=== PATIENT | male | born 1985 | race Caucasian/White ===

== ENCOUNTER 2019-02-25 07:30 | Inpatient (IN) | payer OTHER ==
[~2019-02-25 07:30] MED LIST: Buffered Lidocaine 1% SYRIN* 1 ML/SYRINGE INTRADERM ONE; Lactated Ringers 1000 ML Bag* 1,000 ML IV SCH
--- OUTSIDE RECORDS SUMMARY | 2019-02-25 09:28 | XMS REPORT | Continuity of Care Document ---
:1985 External Reference #:[id number] Author Name Laura Kwon MD (transmitted by agent of provider Benita Garvin) Address [address] [place] [address] Care Team Providers Name Role Phone Vishnu Alfonso PA - Physician Care Team Information Clinical Informatics Director [phone] Promotions Coordinator Problems Description No Information Available Social History Type Date Description Comments Sex Unknown ETOH Use Never used alcohol ETOH Use Occasionally consumes alcohol Recreational Drug [place] Tobacco Use Start: Unknown Patient has never smoked Smoking Status Reviewed: 02/09/19 Patient has never smoked Exercise Type/Frequency Exercises rarely Allergies, Adverse Reactions, Alerts Description No Known Drug Allergies Medications Active Medications SIG Qnty Indications Ordering Date Provider Duloxetine HCL 2 tabs by mouth Unknown 11/23/[address] every day Part Cyclobenzaprine HCL take 1 tab by Unknown 11/23/2018 10mg mouth 2 times a Tablets day as needed Gas-X Extra Strength as needed Unknown 11/23/2018 125mg Capsules Ranitidine 150 Maximum 1-2 tablets at Unknown 11/23/2018 Strength hour of sleep as 150mg Tablets directed Unisom PM Pain 2 tabs by mouth Unknown 11/23/2018 50-325mg at bedtime Tablets Melatonin ER 1-2 tab at Unknown 11/23/2018 5mg Tablets ER bedtime for sleep Atenolol-Chlorthalidone 1 tab by mouth Vishnu Alfonso PA daily 100-25mg Tablets Allopurinol 2 tabs by mouth Vishnu Alfonso PA 300mg Tablets daily Hydrocodone-Acetaminophe 1 or 2 tabs by Unknown n mouth every 6-8 5-325mg Tablets hours as needed for pain Cymbalta 200 mg daily Unknown Allopurinol 2 tab by mouth Unknown 100mg Tablets every day Bupropion Hydrochloride 1 by mouth every Unknown ER (XL) day 300mg Tablets ER 24HR History Medications Indomethacin 1 capsule every 8 Unknown 11/23/2018 - 01/23/2019 50mg Capsules hours as needed Immunizations Description No Information Available Vital Signs Date Vital Result Comment 02/09/2019 1:47pm Height 72 inches 6'0" Weight 431.00 lb Heart Rate 72 /min BP Systolic Sitting 122 mmHg L arm BP Diastolic Sitting 80 mmHg L arm O2 % BldC Oximetry 100 % BMI (Body Mass Index) 58.4 kg/m2 12/08/2018 1:46pm Height 72 inches 6'0" Weight 470.00 lb Heart Rate 84 /min BP Systolic Sitting 131 mmHg L lower labs BP Diastolic Sitting 81 mmHg L lower labs O2 % BldC Oximetry 98 % BMI (Body Mass Index) 63.7 kg/m2 Results Test Acquired Date Facility Test Result H/L Range Note Neph Routine 02/05/2019 [facility] Total Protein 58 mg/dL [address] [place] [address] [phone] Creatinine Random Urine 105.62 mg/dL CBC Auto 02/05/2019 [facility] White Blood 11.4 10^3/uL High 3.5-10.[address] [place] [address] [phone] Red Blood Count 5.30 10^6/uL Normal 4.18-5.48 Hemoglobin 15.6 g/dL Normal 14.0-18.0 Hematocrit 48 % Normal 42-52 Mean Corpuscular Volume 90 fL Normal 80-94 Mean Corpuscular Hemoglobin 30 pg Normal 27-31 Mean Corpuscular HGB Conc 33 g/dL Normal 31-36 Red Cell Distribution Width 15 % Normal 10-15 Platelet Count 273 10^3/uL Normal 150-450 Mean Platelet Volume 9.0 fL Normal 7.4-10.4 Abs Neutrophils 8.5 10^3/uL High 1.5-7.7 Abs Lymphocytes 2.0 10^3/uL Normal 1.0-4.8 Abs Monocytes 0.6 10^3/uL Normal 0-0.8 Abs Eosinophils 0.2 10^3/uL Normal 0-0.6 Abs Basophils 0.1 10^3/uL Normal 0-0.2 Abs Nucleated RBC 0.0 10^3/uL Granulocyte % 74.6 % Lymphocyte % 17.9 % Monocyte % 5.2 % Eosinophil % 1.7 % Basophil % 0.6 % Nucleated Red Blood Cells % 0.1 Urinalysis Profile 02/05/2019 [facility] Urine Color Yellow [address] [place] [address] [phone] Urine Appearance Clear Urine Specific [place] 1.013 Normal 1.010-1.030 Urine pH 6.0 Normal 5-9 Urine Urobilinogen Negative Negative Urine Ketones Negative Negative Urine Protein 1+(30 mg/dL) Abnormal Negative Urine Leukocytes Negative Negative Urine Blood Negative Negative Urine Nitrite Negative Negative Urine Bilirubin Negative Negative Urine Glucose Negative Negative Urine White Blood Cell Absent Absent Urine Red Blood Cell Trace(0-2/hpf) Absent Urine Bacteria Absent Absent Basic Metabolic 02/05/2019 [facility] Sodium 136 mmol/L Normal 135-145 Panel [address] [place] [address] [phone] Potassium 4.0 mmol/L Normal 3.5-5.0 Chloride 101 mmol/L Normal 101-111 Co2 Carbon Dioxide 25 mmol/L Normal 22-32 Anion Gap 10 mmol/L Normal 2-11 Glucose 96 mg/dL Normal 70-100 Blood Urea Nitrogen 31 mg/dL High 6-24 Creatinine 2.29 mg/dL High 0.67-1.17 BUN/Creatinine Ratio 13.5 Normal 8-20 Calcium 10.4 mg/dL High 8.6-10.3 Egfr Non- 33.5 >60 Egfr 40.5 >60 1 1 Because ethnic data is not always readily available, this report includes an eGFR for both -Americans and non- Americans. The National Kidney Disease Education Program (NKDEP) does not endorse the use of the MDRD equation for patients that are not between the ages of 18 and 70, are , have extremes of body size, muscle mass, or nutritional status, or are non- or non-. According to the National Kidney Foundation, irrespective of diagnosis, the stage of the disease is based on the level of kidney function: Stage Description GFR(mL/min/1.73 m(2)) 1 Kidney damage with normal or decreased GFR 90 2 Kidney damage with mild decrease in GFR 60-89 3 Moderate decrease in GFR 30-59 4 Severe decrease in GFR 15-29 5 Kidney failure <15 (or dialysis) Procedures Date Code Description Status 10/11/2018 84298 Sleep Study Unattended,HRT Rate,Oxygen Sat,Resp Completed Effort/Airflow Medical Devices Description No Information Available Encounters Type Date Location Provider Dx Diagnosis Office Visit 12/08/2018 [facility] Nephrology Laura Kennedy I12.9 Hypertensive chronic 2:00p MD Cher kidney disease w stg 1-4/unsp chr kdny E66.01 Morbid (severe) obesity due to excess calories N18.3 Chronic kidney disease, stage 3 (moderate) G47.33 Obstructive sleep apnea (adult) (pediatric) R73.03 Prediabetes Z68.44 Body mass index (BMI) 60.0-69.9, adult I10 Essential (primary) hypertension Office Visit 10/24/2018 [facility] G47.33 Obstructive sleep 11:00a [facility] Sun apnea (adult) [facility] (pediatric) R53.83 Other fatigue E66.01 Morbid (severe) obesity due to excess calories Z68.44 Body mass index (BMI) 60.0-69.9, adult Office Visit 09/22/2018 10:00a [facility] Jovanna Sellers, R06.83 [facility] G47.33 Obstructive sleep apnea (adult) (pediatric) R53.83 Other fatigue Assessments Date Code Description Provider 02/09/2019 I12.9 Hypertensive chronic kidney disease with Laura Kwon MD stage 1 through stage 4 chronic kidney disease, or unspecified chronic kidney disease 02/09/2019 E66.01 Morbid (severe) obesity due to excess Laura Kwon MD calories 02/09/2019 N18.3 Chronic kidney disease, stage 3 (moderate) Laura Kwon MD 02/09/2019 G47.33 Obstructive sleep apnea (adult) (pediatric) Laura Kwon MD 02/09/2019 R73.03 Prediabetes Laura Kwon MD 02/09/2019 Z68.44 Body mass index (BMI) 60.0-69.9, adult Laura Kwon MD 02/09/2019 I10 Essential (primary) hypertension Laura Kwon MD 12/08/2018 I12.9 Hypertensive chronic kidney disease with Laura Kwon MD stage 1 through stage 4 chronic kidney disease, or unspecified chronic kidney disease 12/08/2018 E66.01 Morbid (severe) obesity due to excess Laura Kwon MD calories 12/08/2018 N18.3 Chronic kidney disease, stage 3 (moderate) Laura Kwon MD 12/08/2018 G47.33 Obstructive sleep apnea (adult) (pediatric) Lauar Kwon MD 12/08/2018 R73.03 Prediabetes Laura Kwon MD 12/08/2018 Z68.44 Body mass index (BMI) 60.0-69.9, adult Laura Kwon MD 12/08/2018 I10 Essential (primary) hypertension Laura Kwon MD 10/24/2018 G47.33 Obstructive sleep apnea (adult) (pediatric) Viola Sun NP 10/24/2018 R53.83 Other fatigue Viola Sun NP 10/24/2018 E66.01 Morbid (severe) obesity due to excess Viola Sun NP calories 10/24/2018 Z68.44 Body mass index (BMI) 60.0-69.9, adult Viola Sun NP 10/11/2018 G47.33 Obstructive sleep apnea (adult) (pediatric) Jovanna Sellers MD 09/22/2018 R06.83 Snoring Jovanna Sellers MD 09/22/2018 G47.33 Obstructive sleep apnea (adult) (pediatric) Jovanna Sellers MD 09/22/2018 R53.83 Other fatigue Jovanna Sellers MD Plan of Treatment Future Appointment(s):03/11/2019 2:00 pm - Laura Kwon MD at [facility] Ggzfztncgx85/16/2019 11:00 am - Viola Sun NP at [facility]02/09/2019 - Laura Kwon MDI12.9 Hypertensive chronic kidney disease with stage 1 through stage 4 chronic kidney disease, or unspecified chronic kidney vapqrskJ28.01 Morbid (severe) obesity due to excess mkxsowqlR19.3 Chronic kidney disease, stage 3 (moderate)Follow up:1 month f/u with LabsG47.33 Obstructive sleep apnea (adult) (pediatric)R73.03 BmxfkdrszxqQ51.44 Body mass index (BMI) 60.0-69.9, [id number] Essential (primary) hypertension Functional Status Description No Information Available Mental Status Description No Information Available Referrals Description No Information Available
[2019-02-25] MEDS ORDERED: Lidocaine 1% INJ* 10 MG/ML 30 ML SDV ONE (10:07)
[2019-02-25] MEDS ORDERED: Bacitracin OINTMENT* 0.5% 0.5 oz TUBE ONE (10:07)
[2019-02-25] MEDS ORDERED: Bupivacaine 0.5% W/EPI SDV* 10 ML VIAL INJ ONE ×2 (10:07→11:41)
[2019-02-25] MEDS ORDERED: fentaNYL* 50 MCG/ML 2 ML VIAL (100 MCG VIAL) ONE ×6 (11:11→16:23)
[2019-02-25] MEDS ORDERED: Midazolam* 1 MG/ML 5 ML VIAL (5 MG) ONE (11:12)
[2019-02-25] MEDS ORDERED: Heparin VIAL(*) 5000 UNITS/ML VIAL (FIVE THOUSAND) ONE (11:13)
[2019-02-25] MEDS ORDERED: ceFAZolin 2 GM PREMIX in ORs 2 GM/50 ML BAG ONE (11:13)
[2019-02-25] MEDS ORDERED: ceFAZolin 1 GM ADVAN(*) 1 GM ADDV.VIAL IVPB ONE (11:13)
[2019-02-25] MEDS ORDERED: Methylene Blue 0.5 %* 50 MG/10 ML AMP IV ONE (11:41)
[2019-02-25] MEDS ORDERED: Bupivacaine 0.25% EPI 200,000* 30 ML SDV ONE ×2 (11:42→13:03)
[2019-02-25] MEDS ORDERED: Famotidine IV* 10 MG/ML 2 ML (20 mg) ONE ×2 (12:00→12:06)
[2019-02-25] MEDS ORDERED: Lidocaine 2% PF * 5 ML VIAL ONE (12:18)
[2019-02-25] MEDS ORDERED: Cisatracurium* 2 MG/ML MDV 5 ML ONE (12:20)
[2019-02-25] MEDS ORDERED: Dexamethasone IV* 4 MG/ML 1 ML (4 MG) ONE (12:21)
[2019-02-25] MEDS ORDERED: Propofol* 10 MG/ML 20 ML BTL ONE (12:21)
[2019-02-25] MEDS ORDERED: Ondansetron INJ* 2 MG/ML VIAL ONE (12:21)
[2019-02-25] MEDS ORDERED: Succinylcholine* 20 MG/ML 10 ML VIAL ONE (12:21)
[2019-02-25] MEDS ORDERED: Naloxone* 0.4 MG/ML 1 ML VIAL IV PRN (14:01)
[2019-02-25] MEDS ORDERED: PROCHLORPERAZINE INJ 5 MG/ML 2 ML VIAL IV PRN (14:01)
[2019-02-25] MEDS ORDERED: diPHENhydraMINE IV* 50 MG/ML 1 ml VIAL (BENADRYL) IV PRN (14:01)
[2019-02-25] MEDS ORDERED: HYDROcodone/ACETAMIN 5-325 MG* 1 TAB PO PRN (14:01)
[2019-02-25] MEDS ORDERED: DiMENhydriNATE IV* 50 MG/ML VIAL IV PUSH PRN (14:01)
[2019-02-25] MEDS ORDERED: Acetaminophen IV 1GM/100ML * 100 ML ONE (15:17)
[2019-02-25] MEDS: fentaNYL* 50 MCG/ML 2 ML VIAL (100 MCG VIAL) IV PRN ×5 (16:05→16:30)
[2019-02-25] MEDS ORDERED: Acetaminophen ADULT LIQ* 650 MG/20.3 ML UDC PO PRN (16:11)
[2019-02-25] MEDS ORDERED: Ondansetron INJ* 2 MG/ML VIAL IV PRN (16:11)
--- NOTE | 2019-02-25 16:11 | BRIEFOPN ---
Brief Operative/Procedure Note - Operation Details Pre-Op Diagnosis: morbid obesity; failure of lap band Post-Op Diagnosis: same Procedures: laparoscopic removal of lap band and port; conversion to luci en y gastric bypass Surgeon(s)/Proceduralists: Pete. Assist: JESSICA Motta Anesthesia: GET Estimated Blood Loss: 50 ml; 1600 ml LR Findings: as above Specimen(s)/Culture(s) Description: lap band and port Complications: none
[2019-02-25] MEDS ORDERED: HYDROmorphone INJ1* 1 MG/ML SYRINGE ONE (17:04)
[2019-02-25] MEDS: HYDROmorphone INJ1* 1 MG/ML SYRINGE IV SLOW PU PRN (17:05)
[2019-02-25] MEDS: Metoprolol Tartrate IV* 1 MG/ML 5 ML VIAL IV SCH ×2 (22:01→23:16)
[2019-02-25] MEDS: Famotidine IV* 10 MG/ML 2 ML (20 mg) IV SLOW PU SCH (22:56)
[2019-02-25] MEDS: Heparin VIAL(*) 5000 UNITS/ML VIAL (FIVE THOUSAND) SUBCUT SCH (22:59)
[2019-02-26] MEDS: HYDROmorphone INJ1* 1 MG/ML SYRINGE IV SLOW PU PRN ×6 (00:09→23:25)
[2019-02-26] MEDS: Lactated Ringers 1000 ML Bag* 1,000 ML IV SCH ×2 (01:02→07:33)
[2019-02-26] MEDS: Heparin VIAL(*) 5000 UNITS/ML VIAL (FIVE THOUSAND) SUBCUT SCH ×3 (05:45→22:43)
[2019-02-26] MEDS: Metoprolol Tartrate IV* 1 MG/ML 5 ML VIAL IV SCH ×4 (05:56→22:54)
[2019-02-26] MEDS: Famotidine IV* 10 MG/ML 2 ML (20 mg) IV SLOW PU SCH ×2 (09:44→20:27)
--- NOTE | 2019-02-26 11:16 | PN ---
Progress Note - Progress Note Date of Service: 02/26/19 SOAP: Subjective:pain not adequately controlled;no flatus,no nausea [] Objective: Vital Signs Temp 98 F 02/26/19 07:31 Pulse 81 02/26/19 07:31 Resp 18 02/26/19 09:46 BP 145/71 02/26/19 07:31 Pulse Ox 94 02/26/19 08:00 Intake & Output 02/25/19 02/26/19 02/26/19 18:59 06:59 18:59 Intake Total 981 990 Output Total 875 0 Balance 106 990 Weight 422 lb 3.2 oz Intake: IV Fluids 981 990 LR 981 990 Oral 0 Output: RONI #1 75 Urine 800 0 lungs:clear bilat;heart:RRR;abd:obese,soft,+bs;incisions intact with dressings, no drainage or erythema;RONI sanguinous,exit site c/d/i,no oozing,redressed;ext: nontender calves UGI read,no extravasation or obstruction [] Assessment:POD#1 s/p laparoscopic sleeve gastrectomy,stable;needs adequate pain management as he is on chronic pain meds at home for back and joint pain [] Plan:start bariatric clears bariatric walker,ambulate discuss pain management with his nurse inspiron []
[2019-02-26] MEDS: HYDROcodone/ACET. 7.5/325 LIQ* 15 ML UDC PO PRN ×2 (13:10→20:27)
[2019-02-26] MEDS: D5W 1/2 NS KCl 20 Meq 1000 ML* 1,000 ML IV SCH (16:02)
[2019-02-27] MEDS: D5W 1/2 NS KCl 20 Meq 1000 ML* 1,000 ML IV SCH ×3 (00:03→16:44)
[2019-02-27] MEDS: HYDROcodone/ACET. 7.5/325 LIQ* 15 ML UDC PO PRN ×3 (03:20→22:57)
[2019-02-27] MEDS: Metoprolol Tartrate IV* 1 MG/ML 5 ML VIAL IV SCH ×4 (04:57→22:53)
[2019-02-27] MEDS: Heparin VIAL(*) 5000 UNITS/ML VIAL (FIVE THOUSAND) SUBCUT SCH ×3 (06:33→22:50)
[2019-02-27] MEDS: Famotidine IV* 10 MG/ML 2 ML (20 mg) IV SLOW PU SCH ×2 (08:23→22:51)
[2019-02-27] MEDS: HYDROmorphone INJ1* 1 MG/ML SYRINGE IV SLOW PU PRN ×2 (08:24→17:30)
--- NOTE | 2019-02-27 08:46 | PN ---
Progress Note - Progress Note Date of Service: 02/27/19 SOAP: Subjective:Doing well with sagar clears;ambulating;passing flatus;good pain control [] Objective: Vital Signs Temp 97.6 F 02/27/19 03:10 Pulse 62 02/27/19 03:10 Resp 18 02/27/19 08:24 BP 122/66 02/27/19 03:10 Pulse Ox 95 02/27/19 03:10 Intake & Output 02/26/19 02/27/19 02/27/19 18:59 06:59 18:59 Intake Total 1979 1470 990 Output Total 630 520 Balance 1350 950 990 Intake: IV Fluids 1979 990 990 D51/2ns 20kcl 990 990 LR 1980 Oral 480 Output: RONI #1 30 20 Urine 600 500 lungs:clear bilat;heart:RRR;abd:obese,+bs,incisions intact with dressings,no drainage or erythema;RONI serosang,exit site clean;ext:nontender calves [] Assessment:POD#2 s/p removal of lap band,lap gastric bypass,doing well [] Plan:possible removal of RONI today pt states he will not have a ride home until tomorrow morning will update []
[2019-02-28] MEDS: D5W 1/2 NS KCl 20 Meq 1000 ML* 1,000 ML IV SCH ×2 (00:52→08:59)
[2019-02-28] MEDS: Heparin VIAL(*) 5000 UNITS/ML VIAL (FIVE THOUSAND) SUBCUT SCH (05:50)
[2019-02-28] MEDS: Metoprolol Tartrate IV* 1 MG/ML 5 ML VIAL IV SCH ×2 (05:51→11:20)
[2019-02-28] MEDS: HYDROcodone/ACET. 7.5/325 LIQ* 15 ML UDC PO PRN (07:56)
[2019-02-28] MEDS: Famotidine IV* 10 MG/ML 2 ML (20 mg) IV SLOW PU SCH (07:57)
--- NOTE | 2019-02-28 11:20 | DS ---
CC: YOLIE Aadms; [facility] DISCHARGE SUMMARY: DATE OF ADMISSION: DATE OF DISCHARGE: 02/28/19 HISTORY: Mr. La is a 33-year-old gentleman who was worked up as an outpatient with clinical sever e obesity, status post laparoscopic banding. He presented on same day of surgery and underwent a lef t laparoscopic removal of band and gastric bypass. In the postoperative period, the patient was transferred to the PACU and onto the short stay surgical unit where he was maintained on n.p.o. status until postoperative day 1 where he underwent an upper GI study, which was within normal limits, started on a liquid diet. By postoperative day 2, the patient was doing well passing minimal flatus tolerating liquids, but uns ure if his pain was controlled, we kept him for an overnight. By postoperative day 2, the patient was doing well, walking in the [place], tolerating liquids, and had passed gas and had bowel movements and was not requiring anything significant other than small amount of pain medication. PHYSICAL EXAM: On day of discharge, physical exam was performed. The patient was afebrile. Vital S igns: Stable. Alert and oriented x3, no apparent distress. Head, Eyes, Ears, Nose, and Throat: Nor mocephalic, atraumatic. Sclerae anicteric. Mucous membranes are moist. Lungs: Clear to auscultatio n bilaterally. Abdomen: Soft, nondistended, nontender. Precious intact without evidence of erythema or ecchymosis. Extremities: Within normal limits. PLAN: Discharge to home in stable condition for planned followup. The patient has appointment olayinka arthur next week at Metabolic Bariatric Surgery Office. [id number]/[facility] #: [id number]
[2019-02-28 12:16] VITALS: BP 119/69
--- NOTE | 2019-02-28 15:59 | OP ---
CC: [facility]; Primary Care Doctor OPERATIVE REPORT: DATE OF OPERATION: 02/25/19 Please note this is a late entry. DATE OF : 89 SURGEON: Devon Freeman MD. ASSISTANTS: 1. Jose Quiroz MD. 2. JESSICA Burris. ANESTHESIA: General anesthesia. PRE-OP DIAGNOSES: 1. Clinically severe obesity. 2. Failure of laparoscopic adjustable gastric banding. POST-OP DIAGNOSES: 1. Clinically severe obesity. 2. Failure of laparoscopic adjustable gastric banding. OPERATIVE PROCEDURE: Laparoscopic removal of Lap-Band and port and conversion to a Dev-en-Y gastric bypass. ESTIMATED BLOOD LOSS: 50 cc. FLUIDS: 1600 cc of crystalloid fluid given. SPECIMEN: Lap-Band along with its port. COMPLICATIONS: None. DRAINS: A #10 RONI drain left to the gastrojejunostomy. INDICATIONS: Mr. La is a 33-year-old gentleman worked up as an outpatient with clinically severe obesity and failure of laparoscopic adjustable gastric banding. The patient did well in the preoperat mahamed period with weight loss, but did get down to 420 pounds and I felt that the patient would benefit at this point to undergo a more robust weight loss surgery. I outlined the details of the procedure going over the risks, benefits, and alternatives and the patient understood. We did this in the off ice and briefly again on the day of surgery. DESCRIPTION OF PROCEDURE: The patient was marked, taken to the operating room, and placed on the ope rating table in supine position. Preoperative antibiotics were given. Sequential devices were place d on bilateral lower extremities. General anesthesia was induced. A Jones catheter was inserted and the patient's abdomen was clipped of hair and prepped and draped in the standard surgical fashion. A time-out was performed. Folds of the umbilicus were elevated anteriorly and a Veress needle was inserted into the abdominal c avity, which was then allowed to insufflate to a pressure of 15 mmHg. The patient tolerated the insu fflation well. [place] between the xiphoid and umbilicus, a 12 mm optical trocar was inserted just to the left of midline. Laparoscope was inserted through this. There was no evidence of injury from th e trocar insertion or from the Veress needle, which was then removed. Additional trocars were then p laced in the following position: A 12 mm and 5 mm in the left upper quadrant and a 12 mm and 5 mm in the right upper quadrant. We proceeded to take adhesions to the anterior abdominal wall. A small h ernia was identified around the area of the port. Omental fat was released from this and additional adhesiolysis was carried out right to the falciform. Next, we turned our attention to the inferior edge of the liver as it was adhered to the band. Sharp dissection was carried out at this site to expose the portion of the Lap-Band. At this point, we we re able to get a Riuz retractor through a subxiphoid port and retract this edge of the liver jus t anteriorly. We continued our dissection to free the band from its capsule extending the incision o f this capsule right up along the area of the stomach. This allowed the stomach to be freed from the scarring that extended towards the inferior edge of the liver and onto the lesser omentum. Once we opened the capsule to this degree, we unbuckled the Lap-Band and removed it. We cut the tubi ng at the mid tubing area and then removed it from the right upper quadrant port site and passed it o ff as specimen. We then turned our attention to the stomach. Additional dissection was required to free the superior aspect right up to the angle of His. Both blunt and sharp dissection was carried out to expose the left ihsan. I did not see the right ihsan throughout the procedure. Next, a retrogastric tunnel was made just inferior to where the band was using a 45- mm purple JUAN st apling device. We were in the lesser sac and this allowed us to complete the stomach pouch right up to the angle of His with 2 additional 60 mm purple JUAN stapling devices. We did the last firing over a 32-Stateless Shanice tube. I felt the pouch was appropriately sized and we next turned our attention to the transverse colon. T his was reflected anteriorly and the ligament of Treitz was identified. Approximately 50 cm from the ligament of Treitz was counted off and in the appropriate orientation, we tied the antimesenteric jovanni rder of this to the lateral stapled edge of the stomach pouch in a standard fashion. With these 4 in terrupted 2-[address] in place, we then made gastrostomy over the Shanice tube and an enterot latrice and then mated the two with a 30 mm brantley JUAN stapling device to create the jejunojejunostomy. The anastomosis was patent. The common defect was then reapproximated with running 3-0 PDS suture using 2 sutures starting inferiorly and superiorly and tying them in the middle. Next, the bowel was transected to allow the biliopancreatic limb to fall off of the anastomosis and t hen the anastomosis was checked, clamping the Dev limb distally and inserting methylene blue through the Shanice tube. The pouch and the small-bowel became significantly dilated. We did not see blue at our staple lines or suture line, but there was a small amount of blue dye on the gauze. We made the assumption after looking throughout the full circumference of our anastomosis that this may have bee n from the staple line and this was shored up with an additional 3- 0 silk suture in a U suture fashi on. A methylene blue dye test was performed similarly and this time showed no evidence of blue dye. Attention was then turned towards the Dev limb. Approximately 90 cm was counted off and this was br ought in apposition to the biliopancreatic limb. Jejunojejunostomy was created in a standard fashion with a 60 mm brantley JUAN stapling device and the common defect closed with interrupted 2-0 silk sutures i n a figure- of-eight fashion. The mesenteric defect was similarly closed. Review of the abdomen showed no enteric contents. There was no bleeding. The Ruiz retractor wa s removed and the liver obscured the stomach pouch entirely. Review of the abdomen showed no fluid. However, I did want to place a RONI drain at the gastrojejunostomy, and we placed a #10 RONI drain and br ought it out through the left lateral most port site, and we were able to suture it to the skin with 3-0 Prolene suture. It was placed under the gastrojejunostomy. With the abdomen collapsed, we turned off the gas and kept the ports in site. The right upper quadra nt port site was removed and we extended this incision medially and laterally to make a bigger incisi on to dissect down onto the Lap-Band port. This was removed in its entirety cutting its 4 separate Pr olene sutures off. We then irrigated, debrided the capsule. I did not close the fascia at this and we passed this off as specimen. We then placed our camera back into the abdomen. There did not appea r to be bleeding. We then allowed the abdomen to collapse. Trocars were removed under direct vision and all additional skin incisions were reapproximated with skin wendy. Sterile dressing was applie d. The patient tolerated the procedure well and was transferred to the PACU in stable condition. [id number]/[facility] #: [id number]
== END 2019-02-28 13:45 | disposition home or self-care (01) | DRG 403 ==
LOC: AA 09:24 → SSU 16:18 → AA 18:51 → SSU 18:51
PROVIDERS: ADMIT Surgery; ATTEND Surgery
PROC: 0DP64CZ Removal of Extraluminal Device from Stomach, Percutaneous Endoscopic Approach (ICD-10-PCS; 2019-02-25)
PROC: 0D164ZA Bypass Stomach to Jejunum, Percutaneous Endoscopic Approach (ICD-10-PCS; principal; 2019-02-25 11:30)
DX: E66.01 Morbid (severe) obesity due to excess calories (principal); G47.33 Obstructive sleep apnea (adult) (pediatric); G89.29 Other chronic pain; M25.579 Pain in unspecified ankle and joints of unspecified foot; M25.569 Pain in unspecified knee; F41.9 Anxiety disorder, unspecified; F32.9 Major depressive disorder, single episode, unspecified; M19.90 Unspecified osteoarthritis, unspecified site; N18.3 Chronic kidney disease, stage 3 (moderate); I12.9 Hypertensive chronic kidney disease with stage 1 through stage 4 chronic kidney disease, or unspecified chronic kidney disease; Z68.43 Body mass index [BMI] 50.0-59.9, adult; Z91.048 Other nonmedicinal substance allergy status; Z83.3 Family history of diabetes mellitus; Z82.61 Family history of arthritis; Z98.84 Bariatric surgery status
CPT/HCPCS: 43644; 43774; 74246; 88300; A9270-GY; C1776; J0330; J0690; J1100; J1170; J1644; J2250; J2405; J2704; J3010; J3490

== ENCOUNTER 2021-04-05 18:26 | Inpatient (IN) ==
[2021-04-05] MEDS ORDERED: Morphine 4 MG/ML VIAL (1 ml) IV ONE ×2 (20:32→22:47)
[2021-04-05] MEDS ORDERED: Ondansetron 4 mg VIAL 2 MG/ML 2 ml VIAL IV ONE (20:32)
[2021-04-05 20:56] LABS: ABS Eosinophils 0.1 10^3/ul (0-0.6); ABS Lymphocytes 1.7 10^3/ul (1.0-4.8); ABS Monocytes 0.3 10^3/ul (0-0.8); ABS Neutrophils 5.7 10^3/ul (1.5-7.7); Eosinophil % 0.9 %; Hematocrit 37 % (42-52); Hemoglobin 12.1 g/dL (14.0-18.0); Lymphocyte % 22.1 %; Mean Corpuscular HGB Conc 33 g/dL (31-36); Mean Corpuscular Hemoglobin 31 pg (27-31); Mean Corpuscular Volume 92 fL (80-94); Mean Platelet Volume 8.4 fL (7.4-10.4); Platelet Count 206 10^3/uL (150-450); Red Blood Count 3.95 10^6 /uL (4.18-5.48); Red Cell Distribution Width 17 % (10-15); White Blood Count 7.8 10^3/uL (3.5-10.8)
[2021-04-05 21:11] LABS: ALT 13 U/L (7-52); AST 10 U/L (13-39); Albumin 3.6 g/dL (3.2-5.2); Albumin/Globulin Ratio 1.7 (1-3); Alkaline Phosphatase 72 U/L (35-149); Anion Gap 2 mmol/L (2-11); Blood Urea Nitrogen 22 mg/dL (6-24); C Reactive Protein < 1.00 mg/L (<8.01); CO2 Carbon Dioxide 28 mmol/L (22-32); Calcium 8.3 mg/dL (8.6-10.3); Chloride 109 mmol/L (101-111); Globulin 2.1 g/dL (2-4); Glucose 90 mg/dL (70-100); Lipase 56 U/L (11.0-82.0); Potassium 3.9 mmol/L (3.5-5.0); Sodium 139 mmol/L (135-145); Total Protein 5.7 g/dL (6.4-8.9); eGFR CKD-EPI 61.2 (>60)
[2021-04-05] MEDS ORDERED: Iohexol 300 (CONTRAST) 10 ML SDV IV ONE (21:24)
[2021-04-05 21:35] LABS: Urine Appearance Clear; Urine Bilirubin Negative (Negative); Urine Blood Negative (Negative); Urine Color Yellow; Urine Glucose Negative (Negative); Urine Ketones Negative (Negative); Urine Nitrite Negative (Negative); Urine Protein 1+(30 mg/dL) (Negative); Urine Specific Gravity 1.018 (1.002-1.030); Urine Urobilinogen Negative (Negative)
[2021-04-05 21:39] LABS: Urine Bacteria Absent (Absent); Urine Red Blood Cell Absent (Absent); Urine White Blood Cell Absent (Absent)
[2021-04-06] MEDS: Lactated Ringers 1000 ml BAG 1,000 ML IV SCH ×2 (00:02→16:28)
[2021-04-06] MEDS: HYDROmorphone 1 MG/1 ML SYRINGE IV SLOW PU PRN ×7 (00:11→22:40)
[2021-04-06] MEDS ORDERED: Flu vaccine *QUAD* 2021-22* 0.5 ML SYRINGE IM ONE (09:00)
[2021-04-06] MEDS ORDERED: Lactated Ringers 500 ml BAG 500 ML IV ONE (10:13)
[2021-04-06] MEDS ORDERED: ceFAZolin 2 GM in NS PREMIX 2 GM/100 ML BAG IVPB ONE (10:16)
[2021-04-06] MEDS: Ondansetron 4 mg VIAL 2 MG/ML 2 ml VIAL IV PRN (14:06)
[2021-04-07] MEDS: Lactated Ringers 1000 ml BAG 1,000 ML IV SCH ×2 (00:45→08:49)
[2021-04-07] MEDS: HYDROmorphone 1 MG/1 ML SYRINGE IV SLOW PU PRN ×4 (01:56→12:43)
[2021-04-07 06:34] LABS: ABS Eosinophils 0.1 10^3/ul (0-0.6); ABS Lymphocytes 2.2 10^3/ul (1.0-4.8); ABS Monocytes 0.3 10^3/ul (0-0.8); ABS Neutrophils 3.3 10^3/ul (1.5-7.7); Eosinophil % 2.3 %; Hematocrit 35 % (42-52); Hemoglobin 11.8 g/dL (14.0-18.0); Lymphocyte % 36.6 %; Mean Corpuscular HGB Conc 34 g/dL (31-36); Mean Corpuscular Hemoglobin 31 pg (27-31); Mean Corpuscular Volume 94 fL (80-94); Mean Platelet Volume 8.9 fL (7.4-10.4); Platelet Count 185 10^3/uL (150-450); Red Blood Count 3.76 10^6 /uL (4.18-5.48); Red Cell Distribution Width 17 % (10-15)
[2021-04-07 06:46] LABS: Calcium 7.9 mg/dL (8.6-10.3); Magnesium 2.1 mg/dL (1.9-2.7); Phosphorus 4.2 mg/dL (2.5-5.0); Potassium 3.9 mmol/L (3.5-5.0); eGFR CKD-EPI 67.5 (>60)
[2021-04-07] MEDS ORDERED: ceFAZolin 2 GM in NS PREMIX 2 GM/100 ML BAG IVPB ONE (07:00)
[2021-04-07] MEDS ORDERED: ceFAZolin 2 GM PREMIX 2 GM/50 ML BAG IVPB ONE (13:00)
[2021-04-07] MEDS ORDERED: Midazolam 2 mg/2 ml VIAL 1 mg/ml 2 ml VIAL (2 mg) ONE ×2 (14:09→14:51)
[2021-04-07] MEDS ORDERED: Lidocaine 2% PF 5 ML VIAL ONE ×2 (14:09→14:52)
[2021-04-07] MEDS ORDERED: fentaNYL 100 mcg/2 ml 50 MCG/ML VIAL ONE ×4 (14:09→19:04)
[2021-04-07] MEDS ORDERED: Rocuronium 50 mg VIAL 10 mg/ml 5 ml VIAL (50 mg) ONE ×3 (14:43→17:21)
[2021-04-07] MEDS ORDERED: Propofol 10 MG/ML 20 ML BTL ONE (14:52)
[2021-04-07] MEDS ORDERED: Ondansetron 4 mg VIAL 2 MG/ML 2 ml VIAL ONE ×2 (14:52→19:29)
[2021-04-07] MEDS ORDERED: Lidocaine 1% w EPI 1:200,000 SDV 30 ML VIAL ONE (14:52)
[2021-04-07] MEDS ORDERED: fentaNYL 250 mcg/5 ml 50 MCG/ML 5 ml VIAL (250 MCG) ONE (14:52)
[2021-04-07] MEDS ORDERED: Bupivacaine 0.25% SDV 30 ML ONE (14:52)
[2021-04-07] MEDS ORDERED: Dexamethasone IV 4 MG/ML VIAL 1 ml VIAL ONE (14:52)
[2021-04-07] MEDS ORDERED: DiMENhydriNATE IV 50 mg/ml 1 ml VIAL IV PUSH PRN (15:00)
[2021-04-07] MEDS ORDERED: diPHENhydraMINE IV 50 MG/ML 1 ml VIAL (BENADRYL) IV PRN (15:00)
[2021-04-07] MEDS ORDERED: fentaNYL 100 mcg/2 ml 50 MCG/ML VIAL IV PRN (15:00)
[2021-04-07] MEDS ORDERED: Prochlorperazine 5 mg/ml 2 ml VIAL (10 mg) IV PRN (15:00)
[2021-04-07] MEDS ORDERED: Acetaminophen IV 1 GM/100ML 100 ML IV PRN (15:00)
[2021-04-07] MEDS ORDERED: Ondansetron 4 mg VIAL 2 MG/ML 2 ml VIAL IV PRN (15:00)
[2021-04-07] MEDS ORDERED: Naloxone 0.4 mg VIAL 0.4 mg/ml 1 ml VIAL IV PRN (15:00)
[2021-04-07] MEDS ORDERED: HYDROmorphone 0.5 MG/0.5 ML SYRINGE ONE (16:26)
[2021-04-07] MEDS ORDERED: Sevoflurane BOTTLE ONE (16:58)
[2021-04-07] MEDS ORDERED: Acetaminophen IV 1 GM/100ML VI 100 ML ONE (19:12)
[2021-04-07] MEDS ORDERED: HYDROmorphone 1 MG/1 ML SYRINGE ONE (19:12)
[2021-04-07] MEDS: HYDROmorphone 1 MG/1 ML SYRINGE IV PRN ×2 (19:23→19:33)
[2021-04-07] MEDS ORDERED: Naloxone 0.4 mg VIAL 0.4 mg/ml 1 ml VIAL IV PUSH PRN (19:24)
[2021-04-07] MEDS ORDERED: DiMENhydriNATE IV 50 mg/ml 1 ml VIAL ONE (19:29)
[2021-04-07] MEDS: Ondansetron 4 mg VIAL 2 MG/ML 2 ml VIAL IV PRN (19:31)
[2021-04-07] MEDS ORDERED: HYDROmorphone PCA 20 MG/20 ML PCA.SYRING PCA SCH (20:00)
[2021-04-07] MEDS ORDERED: Pantoprazole 80 mg in NS BAG 80 MG/250 ML BAG IV SCH (23:00)
[2021-04-07] MEDS: Pantoprazole VIAL 40 MG VIAL IV SCH (23:19)
[2021-04-08] MEDS ORDERED: ceFAZolin 2 GM in NS PREMIX 2 GM/100 ML BAG IVPB ONE
[2021-04-08] MEDS ORDERED: HYDROmorphone PCA 20 MG/20 ML PCA.SYRING PCA SCH ×2 (00:25→08:55)
[2021-04-08] MEDS: Lactated Ringers 1000 ml BAG 1,000 ML IV SCH ×3 (04:32→21:00)
[2021-04-08] MEDS: Pantoprazole VIAL 40 MG VIAL IV SCH ×2 (09:28→21:00)
[2021-04-08 10:11] LABS: ABS Lymphocytes 1.5 10^3/ul (1.0-4.8); ABS Monocytes 0.9 10^3/ul (0-0.8); ABS Neutrophils 13.3 10^3/ul (1.5-7.7); Eosinophil % 0.1 %; Hematocrit 42 % (42-52); Lymphocyte % 9.7 %; Mean Corpuscular HGB Conc 33 g/dL (31-36); Mean Corpuscular Hemoglobin 31 pg (27-31); Mean Corpuscular Volume 94 fL (80-94); Mean Platelet Volume 8.7 fL (7.4-10.4); Platelet Count 261 10^3/uL (150-450); Red Blood Count 4.51 10^6 /uL (4.18-5.48); Red Cell Distribution Width 17 % (10-15); White Blood Count 15.7 10^3/uL (3.5-10.8)
[2021-04-08] MEDS: Acetaminophen IV 1 GM/100ML VI 100 ML IV SCH ×2 (10:15→16:02)
[2021-04-08 10:28] LABS: Calcium 8.5 mg/dL (8.6-10.3); Potassium 4.2 mmol/L (3.5-5.0); eGFR CKD-EPI 53.9 (>60)
[2021-04-08] MEDS ORDERED: diPHENhydraMINE IV 50 MG/ML 1 ml VIAL (BENADRYL) IV ONE (16:20)
[2021-04-08] MEDS: diPHENhydraMINE IV 50 MG/ML 1 ml VIAL (BENADRYL) IV PRN (21:44)
[2021-04-08] MEDS: Acetaminophen IV 1 GM/100ML 100 ML IV SCH (22:16)
[2021-04-09] MEDS: Acetaminophen IV 1 GM/100ML 100 ML IV SCH (04:44)
[2021-04-09] MEDS: Lactated Ringers 1000 ml BAG 1,000 ML IV SCH (04:51)
[2021-04-09] MEDS: diPHENhydraMINE IV 50 MG/ML 1 ml VIAL (BENADRYL) IV PRN (04:56)
[2021-04-09 07:09] LABS: Calcium 8.1 mg/dL (8.6-10.3); Magnesium 1.9 mg/dL (1.9-2.7); Potassium 4.4 mmol/L (3.5-5.0); eGFR CKD-EPI 43.6 (>60)
[2021-04-09] MEDS: Pantoprazole VIAL 40 MG VIAL IV SCH (09:16)
[2021-04-09] MEDS: D5W 1/2 NS 1000 ml BAG 1,000 ML IV SCH (11:54)
[2021-04-09] MEDS: oxyCODONE/Acetamin 5/325 mg TAB PO PRN (12:05)
[2021-04-10] MEDS: D5W 1/2 NS 1000 ml BAG 1,000 ML IV SCH (01:11)
[2021-04-10 05:20] LABS: ABS Eosinophils 0.2 10^3/ul (0-0.6); ABS Lymphocytes 1.5 10^3/ul (1.0-4.8); ABS Monocytes 0.4 10^3/ul (0-0.8); ABS Neutrophils 4.2 10^3/ul (1.5-7.7); Eosinophil % 3.2 %; Hematocrit 30 % (42-52); Hemoglobin 9.9 g/dL (14.0-18.0); Lymphocyte % 23.7 %; Mean Corpuscular HGB Conc 34 g/dL (31-36); Mean Corpuscular Hemoglobin 31 pg (27-31); Mean Corpuscular Volume 93 fL (80-94); Mean Platelet Volume 8.5 fL (7.4-10.4); Platelet Count 172 10^3/uL (150-450); Red Blood Count 3.17 10^6 /uL (4.18-5.48); Red Cell Distribution Width 17 % (10-15); White Blood Count 6.3 10^3/uL (3.5-10.8)
[2021-04-10 05:28] LABS: Calcium 8.4 mg/dL (8.6-10.3); eGFR CKD-EPI 55.9 (>60)
[2021-04-10] MEDS ORDERED: EMTRICITABINE TENOFOVIR ALAFEN PO SCH (09:00)
[2021-04-10] MEDS ORDERED: Venlafaxine XR 75 mg PO SCH (09:00)
[2021-04-10 12:08] VITALS: BP 105/70
[2021-04-10] MEDS: oxyCODONE/Acetamin 5/325 mg TAB PO PRN (12:44)
== END 2021-04-10 14:24 | disposition home or self-care (01) | DRG 229 ==
LOC: ED 18:26 → EDHOLD 18:26 → SSU 04-06 00:22
PROVIDERS: ADMIT Internal Medicine; ATTEND Surgery